=== PATIENT | male | born 1935 | race Caucasian/White ===

== ENCOUNTER 2022-03-23 19:25 | Emergency (ER) | payer MEDICARE, OTHER ==
[~2022-03-23] VITALS: Ht 177 cm; Wt 175.0 kg
[2022-03-23 19:56] LABS: BASOPHILS % (AUTO) 0 % (0-10); EOSINOPHILS % (AUTO) 0 % (0-10); HEMATOCRIT 40 % (40-54); HEMOGLOBIN 12.9 g/dL (13.3-17.7); LYMPHOCYTES # (AUTO) 0.5 10^3/uL (1.0-4.0); LYMPHOCYTES % (AUTO) 5 % (12-44); MEAN CORPUSCULAR HEMOGLOBIN 30 pg (25-34); MEAN CORPUSCULAR HGB CONC 32 g/dL (32-36); MEAN CORPUSCULAR VOLUME 93 fL (80-99); MONOCYTES # (AUTO) 0.7 10^3/uL (0.0-1.0); MONOCYTES % (AUTO) 7 % (0-12); NEUTROPHILS # (AUTO) 8.9 10^3/uL (1.8-7.8); NEUTROPHILS % (AUTO) 87 % (42-75); PLATELET COUNT 222 10^3/uL (130-400); WHITE BLOOD COUNT 10.3 10^3/uL (4.3-11.0)
--- NOTE | 2022-03-23 20:00 | Diagnostic Imaging Report ---
INDICATION: Shortness of air COMPARISON: None available TECHNIQUE: Single radiograph of the chest dated 03/23/2022. FINDINGS: The cardiac silhouette is enlarged. Central pulmonary vascular congestion is present. Diffuse interstitial opacities are noted with associated tiny bilateral pleural effusions. No pneumothorax. Chronic appearing left-sided rib fractures. Calcifications within the aortic arch. Scattered osseous degenerative changes without acute osseous abnormality. IMPRESSION: Mild bilateral interstitial opacities with associated trace pleural effusions. This is favored to relate to interstitial edema given cardiomegaly and mild central pulmonary vascular congestion. Interstitial infiltrate could be considered. Chronic left-sided rib fractures. Dictated by: Dictated on workstation # [id number]
[2022-03-23] MEDS ORDERED: RT-ALBUTEROL HFA 8.5 GM INHALER IH ONE (20:15)
--- NOTE | 2022-03-23 20:35 | ED General ---
General Chief Complaint: Trauma-Non Activation Stated Complaint: FALL Nursing Triage Note: Pt fell and hit the back of his head and his right side at the [facility]., "[facility]". He is complaining of a bump on the back of his head and shortness of air. Pt has abdominal retractions and increased work of breathing. Not on O2 at home but EMS has him on 4L of O2 via [place] on arrival for low O2 sats at the time they picked him up. He is diminished throughout with wheezing on the right. Source of Information: Patient, EMS, Family, [facility] Records Exam Limitations: No Limitations History of Present Illness Date Seen by Provider: Mar 23, 2022 Time Seen by Provider: 19:41 Initial Comments This 86-year-old gentleman presents to the emergency room via EMS after having a fall on same level at [facility] where he is a resident. He is a poor historian. He reports some minor pain at the right anterior costal margin. He denies any head or neck pain but he does have a hematoma on the right posterior scalp. No open wounds. He denies any hip pain. He is short of breath and exhibits accessory muscle use during expiration. Oxygen saturation was 90% on room air and he reports no history of oxygen use at home. His [facility] record notes past medical history significant for CHF, aortic stenosis, chronic kidney disease, hypertension, type 2 diabetes, and ischemic cardiomyopathy. He is afebrile. Primary care provider is Dr. WILEY. He was previously cared for by Maile Leroy at [facility] in [place] before moving into the [facility]. DNR order is noted. He has notable pitting edema of the lower extremities. Patient's son and [id number] arrive later and add to the history. Appar ently, patient has been complaining of shortness of breath since last week. He was found in his chair after the fall this evening. He reportedly got himself up to the chair on his own. Patient reports he got tripped up on his socks, and that was the cause of fall. Location Injury Occurred: [facility] Allergies and Home Medications Allergies Coded Allergies: hydroxyzine (Verified Allergy, Unknown, 03/23/22) lisinopril (Verified Allergy, Unknown, 03/23/22) Patient Home Medication List Home Medication List Reviewed: Yes Review of Systems Review of Systems Constitutional: no symptoms reported EENTM: see HPI Respiratory: see HPI Cardiovascular: see HPI Gastrointestinal: no symptoms reported Genitourinary: no symptoms reported Musculoskeletal: see HPI Skin: no symptoms reported Psychiatric/Neurological: See HPI, Other (Dementia) Hematologic/Lymphatic: No Symptoms Reported Immunological/Allergic: no symptoms reported Past Iweewmu-Pjqstj-Hldbgo Hx Patient Social History Tobacco Use?: No Smoking Status: Former Smoker Use of E-Cig and/or Vaping dev: No Substance use?: No Alcohol Use?: No Pt feels they are or have been: No Past Medical History Surgeries: Yes Orthopedic (Hip fracture) Respiratory: No Cardiac: Yes (Congestive heart failure) Cardiomyopathy (Ischemic), Hypertension Neurological: Yes Dementia Genitourinary: No Gastrointestinal: Yes Gastroesophageal Reflux, Esophagitis Musculoskeletal: No Endocrine: Yes Diabetes, Non-Insulin dep HEENT: No Cancer: No Psychosocial: No Integumentary: No Physical Exam Vital Signs Vital Signs - First Documented Capillary Refill : Less Than 3 Seconds Height, Weight, BMI Height: '" Weight: lbs. oz. kg; 55.00 BMI Method: General Appearance: No Apparent Distress, WD/WN HEENT: PERRL/EOMI, Normal ENT Inspection, Pharynx Normal Neck: Normal Inspection, Non Tender Respiratory: Accessory Muscle Use (Abdominal muscle use to force expiration); No Crackles; Decreased Breath Sounds (Diminished breath sounds bilaterally, worse on the right), Wheezing (Tight wheezing on the right), Other (Tenderness along the right lateral and anterior lower chest wall) Cardiovascular: No Murmur, Irregularly Irregular, Other (Significant pitting edema of the lower extremities, equal bilaterally) Gastrointestinal: Normal Bowel Sounds, Non Tender, Soft Back: Normal Inspection, No Vertebral Tenderness Extremity: Non Tender, Pedal Edema, Swelling, Other (No tenderness of the hips with palpation or pain with rotation of the hips) Neurologic/Psychiatric: Alert, No Motor/Sensory Deficits, Normal Mood/Affect, pulley worker II-XII Norm as Tested, Other (Oriented to person, age, and location) Skin: Normal Color, Warm/Dry Progress/Results/Core Measures Suspected Sepsis Recent Fever Within 48 Hours: No New/Unexplained Altered Menta: No SIRS Temperature: Pulse: 98 Respiratory Rate: 24 Laboratory Tests 03/23/22 19:30: White Blood Count 10.3 Blood Pressure 124 /84 Mean: 97 Laboratory Tests 03/23/22 19:30: Creatinine 1.61H, Platelet Count 222, Total Bilirubin 0.6 Results/Orders Lab Results Laboratory Tests Test 03/23/22 19:30 03/23/22 20:40 Range/Units White Blood Count 10.3 4.3-11.0 10^3/uL Red Blood Count 4.27 L 4.30-5.52 10^6/uL Hemoglobin 12.9 L 13.3-17.7 g/dL Hematocrit 40 40-54 % Mean Corpuscular Volume 93 80-99 fL Mean Corpuscular Hemoglobin 30 25-34 pg Mean Corpuscular Hemoglobin Concent 32 32-36 g/dL Red Cell Distribution Width 14.7 H 10.0-14.5 % Platelet Count 222 130-400 10^3/uL Mean Platelet Volume 10.0 9.0-12.2 fL Immature Granulocyte % (Auto) 1 % Neutrophils (%) (Auto) 87 H 42-75 % Lymphocytes (%) (Auto) 5 L 12-44 % Monocytes (%) (Auto) 7 0-12 % Eosinophils (%) (Auto) 0 0-10 % Basophils (%) (Auto) 0 0-10 % Neutrophils # (Auto) 8.9 H 1.8-7.8 10^3/uL Lymphocytes # (Auto) 0.5 L 1.0-4.0 10^3/uL Monocytes # (Auto) 0.7 0.0-1.0 10^3/uL Eosinophils # (Auto) 0.0 0.0-0.3 10^3/uL Basophils # (Auto) 0.0 0.0-0.1 10^3/uL Immature Granulocyte # (Auto) 0.1 0.0-0.1 10^3/uL Neutrophils % (Manual) 90 % Lymphocytes % (Manual) 2 % Monocytes % (Manual) 5 % Basophils % (Manual) 1 % Reactive Lymphocytes 2 % Platelet Estimate NORMAL Blood Morphology Comment NORMAL Sodium Level 141 135-145 MMOL/L Potassium Level 3.7 3.6-5.0 MMOL/L Chloride Level 105 98-107 MMOL/L Carbon Dioxide Level 24 21-32 MMOL/L Anion Gap 12 5-14 MMOL/L Blood Urea Nitrogen 22 H 7-18 MG/DL Creatinine 1.61 H 0.60-1.30 MG/DL Estimat Glomerular Filtration Rate 41 BUN/Creatinine Ratio 14 Glucose Level 154 H 70-105 MG/DL Calcium Level 9.9 8.5-10.1 MG/DL Corrected Calcium 9.9 8.5-10.1 MG/DL Magnesium Level 2.0 1.6-2.4 MG/DL Total Bilirubin 0.6 0.1-1.0 MG/DL Aspartate Amino Transf (AST/SGOT) 16 5-34 U/L Alanine Aminotransferase (ALT/SGPT) 17 0-55 U/L Alkaline Phosphatase 138 H 40-136 U/L Troponin I < 0.30 <0.30 NG/ML C-Reactive Protein 2.95 H <0.50 MG/DL Pro-B-Type Natriuretic Peptide 8447.0 H <75.0 PG/ML Total Protein 7.2 6.4-8.2 GM/DL Albumin 4.0 3.2-4.5 GM/DL Influenza Type A (RT-PCR) Not Detected Not Detecte Influenza Type B (RT-PCR) Not Detected Not Detecte SARS-CoV-2 RNA (RT-PCR) Not Detected Not Detecte Urine Color DARK YELLOW Urine Clarity CLEAR Urine pH 5.0 5-9 Urine Specific [place] 1.025 H 1.016-1.022 Urine Protein TRACE H NEGATIVE Urine Glucose (UA) NEGATIVE NEGATIVE Urine Ketones 1+ H NEGATIVE Urine Nitrite NEGATIVE NEGATIVE Urine Bilirubin NEGATIVE NEGATIVE Urine Urobilinogen 0.2 < = 1.0 MG/DL Urine Leukocyte Esterase NEGATIVE NEGATIVE Urine RBC (Auto) NEGATIVE NEGATIVE Urine RBC NONE /HPF Urine WBC RARE /HPF Urine Squamous Epithelial Cells RARE /HPF Urine Crystals NONE /LPF Urine Bacteria NEGATIVE /HPF Urine Casts NONE /LPF Urine Mucus MODERATE H /LPF Urine Culture Indicated NO My Orders Orders - JUAN MANUEL HUFFMAN MD Cbc With Automated Diff (03/23/22 19:40) Comprehensive Metabolic Panel (03/23/22 19:40) Magnesium (03/23/22 19:40) Probnp Fs (03/23/22 19:40) Crp Fs (03/23/22 19:40) Chest 1 View Ap/Pa Only (03/23/22 19:40) Ed Iv/Invasive Line Start (03/23/22 19:40) Ekg Tracing (03/23/22 19:40) O2 (03/23/22 19:40) Monitor-Rhythm Ecg Trace Only (03/23/22 19:40) Covid 19 Inhouse Test (03/23/22 19:40) Influenza A And B By Pcr (03/23/22 19:40) Ct Head/Cervical Spine Wo (03/23/22 19:43) Ct Chest/Abdomen/Pelvis Wo (03/23/22 19:43) Troponin I Abdon (03/23/22 19:55) Ua Culture If Indicated (03/23/22 19:55) Manual Differential (03/23/22 19:30) Albuterol Inhaler (Albuterol) (03/23/22 20:15) Sanchez Cath (03/23/22 20:55) Furosemide Injection (Lasix Injection) (03/23/22 21:15) Medications Given in ED Current Medications Medications Dose Ordered Sig/Rosa Route Start Time Stop Time Status Last Admin Dose Admin Albuterol Sulfate 4 PUFFS Q2H ONCE IH 03/23/22 20:15 03/23/22 20:16 DC 03/23/22 20:18 360 MCG Furosemide 40 mg ONCE ONCE IVP 03/23/22 21:15 03/23/22 21:16 DC 03/23/22 21:15 40 MG Vital Signs/I&O 03/23/22 03/23/22 03/23/22 03/23/22 19:25 19:25 19:25 19:25 Temp 36.8 36.8 36.8 Pulse 98 98 98 Resp 24 24 24 B/P (MAP) 124/84 (97) 124/84 124/84 (97) Pulse Ox 94 94 94 94 O2 Delivery Nasal Cannula Nasal Cannula Nasal Cannula Nasal Cannula O2 Flow Rate 4.00 4.00 4.00 03/23/22 03/23/22 21:47 22:06 Temp 36.7 Pulse 113 91 Resp 26 20 B/P (MAP) 141/67 127/84 Pulse Ox 97 96 O2 Delivery Nasal Cannula Nasal Cannula O2 Flow Rate 4.00 2.00 Capillary Refill : Less Than 3 Seconds Blood Pressure Mean: 97 Progress Note : Time: 21:30 Progress Note Patient underwent thorough evaluation with CT imaging from head through pelvis. No acute injuries were found in the head or cervical spine aside from the superficial scalp hematoma. However, there is question of rib fractures on the right where he is tender along the right anterior and lateral chest wall. Unfortunately there was motion artifact from breathing on the CT scan that makes definitive diagnosis of rib fracture uncertain. There is also question of T1 spinous process fracture and compression fractures at multiple levels with uncertain chronicity. Patient did not have any significant tenderness on the thoracic or lumbar spine. Heart failure seems to be his major problem at this time. He has notable pulmonary edema and pleural effusions bilaterally. He is requiring 2 to 4 L of oxygen and continues to have mild to moderate labored b reathing after albuterol treatment. Sanchez catheter was placed and Lasix 40 mg IV was administered. I discussed admission and transfer with patient and family. He has never been seen or admitted to [place] [facility] in [place]. His cardiac care has previously been provided at [facility], and that is where they prefer transfer. I discussed transfer with Dr. Beltran and the trauma service at [facility]. They graciously accept transfer to the [facility] location. Patient remains stable and alert at this time. Transfer to [facility] is preferred medically for continuity of cardiac care as well as availability of inhouse pulmonology and blueprint machine operator services which cannot be provided in [place]. The potential presence of pulmonary contusions and rib fracture increases risk in that regard. ECG Initial ECG Impression Date: Mar 23, 2022 Initial ECG Impression Time: 19:51 Initial ECG Rate: 97 Initial ECG Rhythm: Normal Sinus Comment Sinus rhythm with frequent premature beats. Right axis deviation and right bu ndle branch block. No ST elevation or depression to suggest ischemia. Diagnostic Imaging Diagonstic Imaging: Xray Plain Films/CT/US/NM/MRI: chest Comments Chest x-ray reviewed by me. Preliminary report reviewed. See report below: NAME: CHESTER CAUSEY REC#: [id number] PT STATUS: REG ER : 1935 PHYSICIAN: JUAN MANUEL HUFFMAN MD ADMIT DATE: 03/23/22/ER FS Draft Date of Exam:03/23/22 CHEST 1 VIEW AP/PA ONLY INDICATION: Shortness of air COMPARISON: None available TECHNIQUE: Single radiograph of the chest dated 03/23/2022. FINDINGS: The cardiac silhouette is enlarged. Central pulmonary vascular congestion is present. Diffuse interstitial opacities are noted with associated tiny bilateral pleural effusions. No pneumothorax. Chronic appearing left-sided rib fractures. Calcifications within the aortic arch. Scattered osseous degenerative changes without acute osseous abnormality. IMPRESSION: Mild bilateral interstitial opacities with associated trace pleural effusions. This is favored to relate to interstitial edema given cardiomegaly and mild central pulmonary vascular congestion. Interstitial infiltrate could be considered. Chronic left-sided rib fractures. Dictated on workstation # [id number] Dict: 03/23/221953 Trans: 03/23/221999 [facility] [id number] Interpreted by: ISAIAH FELIZ MD Diagonstic Imaging: CT Plain Films/CT/US/NM/MRI: chest, abdomen, pelvis Comments CT chest, abdomen and pelvis viewed by me and preliminary report reviewed. See report below: NAME: CHESTER CAUSEY REC#: [id number] PT STATUS: REG ER : 1935 PHYSICIAN: JUAN MANUEL HUFFMAN MD ADMIT DATE: 03/23/22/ER FS Signed Date of Exam:03/23/22 CT CHEST/ABDOMEN/PELVIS WO PROCEDURE: CT chest, abdomen, and pelvis without contrast. TECHNIQUE: Multiple contiguous axial images were obtained through the chest, abdomen, and pelvis without the use of intravenous contrast. Auto Exposure Controls were utilized during the CT exam to meet ALARA standards for radiation dose reduction. INDICATION: Fall, injury, pain COMPARISON: None available FINDINGS: No significant adenopathy within the chest. The heart is enlarged. Moderate scattered vascular calcifications, including within the coronary arteries. No pericardial effusion. Moderate sized bilateral pleural effusions with significant patchy groundglass and reticular opacities throughout the lungs bilaterally. No pneumothorax. Evaluation of the osseous structures within the chest is limited secondary to respiratory motion. There are potentially multiple lateral inferior right-sided rib fractures. Chronic appearing multiple posterior lateral left-sided rib fractures. Fracturing involving the tips of the T1 and T2 spinous processes. Mild superior endplate compression deformity of T2. Mild to moderate compression deformity of T9 is also identified with associated sclerosis. Moderate superior endplate deformity of T11 also noted with disruption of the superior endplate. The unenhanced liver and spleen are grossly unremarkable. The adrenal glands are unremarkable. The pancreas is grossly unremarkable. The gallbladder is unremarkable. 5 mm hyperdensity arising from the superior pole of the right kidney. 2.2 cm hypodensity within the left kidney with additional 0.8 cm hyperdensity within the inferior pole of the left kidney. No evidence of hydronephrosis. Moderate vascular calcifications within the abdominal aorta and its branch vessels without aneurysm. The appendix is unremarkable. The prostate gland is enlarged. Trabeculation of the urinary bladder with mild mural thickening of the urinary bladder. Bilateral fat-containing inguinal hernias. No bowel obstruction or pneumatosis. No significant adenopathy, free air, or free fluid within the abdomen or pelvis. Alignment of the lumbar spine is well maintained. Schmorl's node within the inferior endplate of L1. Significant degenerative changes within the lumbar spine without acute osseous abnormality within the lumbar spine. Postsurgical changes noted within the left femur and hip with associated heterotopic ossification. IMPRESSION: Multiple age-indeterminate compression deformities throughout the thoracolumbar spine, including T1, T2, T9, and T11. These are of uncertain chronicity, the majority of these appear potentially chronic in nature. Recommend correlation for pain at these locations. The T11 deformity could be recent given discontinuity of the superior endplate. Moderate bilateral pleural effusions with adjacent bilateral groundglass opacities which could relate to edema or contusion. No pneumothorax. Cardiomegaly. Potential lateral right-sided rib fractures, though this is favored to simply relate to respiratory motion. Bilateral renal hypo and hyperdensities, incompletely evaluated on this examination. These most likely statistically relate to cysts, including proteinaceous cysts. 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 Dictated by: Dictated on workstation # [id number] Dict: 03/23/222046 Trans: 03/23/222122 [facility] [id number] Interpreted by: ISAIAH FELIZ MD Electronically signed by: ISAIAH FELIZ MD 03/23/222122 Diagonstic Imaging: CT Plain Films/CT/US/NM/MRI: c-spine, head Comments CT head and C-spine viewed by me and preliminary report reviewed. See report below: NAME: CHESTER CAUSEY REC#: [id number] PT STATUS: REG ER : 1935 PHYSICIAN: JUAN MANUEL HUFFMAN MD ADMIT DATE: 03/23/22/ER FS Signed Date of Exam:03/23/22 CT HEAD/CERVICAL SPINE WO PROCEDURE: CT head and CT cervical spine without contrast. TECHNIQUE: Multiple contiguous axial images were obtained through the brain and cervical spine without the use of intravenous contrast. Sagittal and coronal reformations through the cervical spine were then performed. Auto Exposure Controls were utilized during the CT exam to meet ALARA standards for radiation dose reduction. INDICATION: Fall, head injury, pain COMPARISON: None available FINDINGS: Advanced atrophy. No intracranial hemorrhage. No intracranial mass, mass effect, midline shift, herniation, hydrocephalus, or extra-axial fluid collection. Periventricular and subcortical white matter hypodensities are present, most consistent with moderate background chronic small vessel white matter ischemic disease. No definite CT evidence of an acute ischemic infarction. Posterior right parietal scalp hematoma is present without underlying calvarial fracture. The bilateral ocular lenses are absent. The orbits are otherwise unremarkable. Background vascular calcifications. The paranasal sinuses are clear. The calvarium is intact. Reversal of the normal cervical lordosis without significant anterolisthesis or retrolisthesis. Alignment of the atlantooccipital joint is well maintained. Mild superior endplate concavity of T2 is identified, though only partially visualized. Chronic appearing vertebral body height loss of C7. Fracturing of the distal aspect of the T1 spinous process. No additional acute fracture. Multilevel high-grade disc space height loss, particularly at C4/C5 through C6/C7. Multilevel disc bulges and disc osteophyte complexes are present. Scattered facet joint degenerative changes and uncovertebral joint hypertrophy. There is resulting multilevel neural foraminal stenosis, including severe right neural foraminal stenosis at C3/C4. Moderate to severe bilateral neural foraminal stenosis at C5/C6. Multilevel central canal stenosis is present, greatest at C4/C5 and C5/C6. Bilateral pleural effusions are partially visualized. Background vascular calcifications. IMPRESSION: No acute intracranial abnormality with a posterior right parietal scalp hematoma without underlying calvarial fracture. Age-indeterminate mild superior endplate compression deformity of T2. Recommend correlation for focal pain at this location. Mildly displaced fracture involving the tip of the T1 spinous process, likely acute. Advanced multilevel degenerative changes with multilevel central canal and neural foraminal stenosis. Bilateral pleural effusions. Dictated by: Dictated on workstation # [id number] Dict: 03/23/222040 Trans: 03/23/222123 [facility] [id number] Interpreted by: ISAIAH FELIZ MD Electronically signed by: ISAIAH FELIZ MD 03/23/222123 Departure Impression Primary Impression: Acute exacerbation of congestive heart failure Qualified Codes: I50.9 - Heart failure, unspecified Additional Impressions: Fall on same level as cause of accidental injury Right rib fracture Scalp contusion Qualified Codes: S00.03XA - Contusion of scalp, initial encounter Hypoxia Pleural effusion Possible pulmonary contusion Spinous process fracture Disposition: XFER SHT-TRM HOSP Condition: Stable Transfer Transfer Reason: Exceeds level of care Time Spoke to Accepting Phy: 21:04 Transfer Progress Notes Transfer accepted by Dr. Beltran to [facility]. Transfer Time: 22:06 Transfer Facility: [facility] Method of Transfer: EMS Copy Copies To 1: [facility] Copies To 2: ANITA WILEY JOSHUA T MD Mar 23, 2022 20:35
[2022-03-23 20:42] LABS: BASOPHILS % (MANUAL) 1 %; LYMPHOCYTES % (MANUAL) 2 %; MONOCYTES % (MANUAL) 5 %; NEUTROPHILS % (MANUAL) 90 %
[2022-03-23 20:43] LABS: PLATELET ESTIMATE NORMAL; RBC MORPH NORMAL; REACTIVE LYMPHOCYTES 2 %
[2022-03-23 20:45] LABS: BILIRUBIN,TOTAL 0.6 MG/DL (0.1-1.0); CALCIUM 9.9 MG/DL (8.5-10.1); CREATININE SERUM 1.61 MG/DL (0.60-1.30); POTASSIUM 3.7 MMOL/L (3.6-5.0)
[2022-03-23 20:46] LABS: TOTAL PROTEIN 7.2 GM/DL (6.4-8.2)
--- NOTE | 2022-03-23 20:56 | Diagnostic Imaging Report ---
PROCEDURE: CT head and CT cervical spine without contrast. TECHNIQUE: Multiple contiguous axial images were obtained through the brain and cervical spine without the use of intravenous contrast. Sagittal and coronal reformations through the cervical spine were then performed. Auto Exposure Controls were utilized during the CT exam to meet ALARA standards for radiation dose reduction. INDICATION: Fall, head injury, pain COMPARISON: None available FINDINGS: Advanced atrophy. No intracranial hemorrhage. No intracranial mass, mass effect, midline shift, herniation, hydrocephalus, or extra-axial fluid collection. Periventricular and subcortical white matter hypodensities are present, most consistent with moderate background chronic small vessel white matter ischemic disease. No definite CT evidence of an acute ischemic infarction. Posterior right parietal scalp hematoma is present without underlying calvarial fracture. The bilateral ocular lenses are absent. The orbits are otherwise unremarkable. Background vascular calcifications. The paranasal sinuses are clear. The calvarium is intact. Reversal of the normal cervical lordosis without significant anterolisthesis or retrolisthesis. Alignment of the atlantooccipital joint is well maintained. Mild superior endplate concavity of T2 is identified, though only partially visualized. Chronic appearing vertebral body height loss of C7. Fracturing of the distal aspect of the T1 spinous process. No additional acute fracture. Multilevel high-grade disc space height loss, particularly at C4/C5 through C6/C7. Multilevel disc bulges and disc osteophyte complexes are present. Scattered facet joint degenerative changes and uncovertebral joint hypertrophy. There is resulting multilevel neural foraminal stenosis, including severe right neural foraminal stenosis at C3/C4. Moderate to severe bilateral neural foraminal stenosis at C5/C6. Multilevel central canal stenosis is present, greatest at C4/C5 and C5/C6. Bilateral pleural effusions are partially visualized. Background vascular calcifications. IMPRESSION: No acute intracranial abnormality with a posterior right parietal scalp hematoma without underlying calvarial fracture. Age-indeterminate mild superior endplate compression deformity of T2. Recommend correlation for focal pain at this location. Mildly displaced fracture involving the tip of the T1 spinous process, likely acute. Advanced multilevel degenerative changes with multilevel central canal and neural foraminal stenosis. Bilateral pleural effusions. Dictated by: Dictated on workstation # [id number]
--- NOTE | 2022-03-23 21:01 | Diagnostic Imaging Report ---
PROCEDURE: CT chest, abdomen, and pelvis without contrast. TECHNIQUE: Multiple contiguous axial images were obtained through the chest, abdomen, and pelvis without the use of intravenous contrast. Auto Exposure Controls were utilized during the CT exam to meet ALARA standards for radiation dose reduction. INDICATION: Fall, injury, pain COMPARISON: None available FINDINGS: No significant adenopathy within the chest. The heart is enlarged. Moderate scattered vascular calcifications, including within the coronary arteries. No pericardial effusion. Moderate sized bilateral pleural effusions with significant patchy groundglass and reticular opacities throughout the lungs bilaterally. No pneumothorax. Evaluation of the osseous structures within the chest is limited secondary to respiratory motion. There are potentially multiple lateral inferior right-sided rib fractures. Chronic appearing multiple posterior lateral left-sided rib fractures. Fracturing involving the tips of the T1 and T2 spinous processes. Mild superior endplate compression deformity of T2. Mild to moderate compression deformity of T9 is also identified with associated sclerosis. Moderate superior endplate deformity of T11 also noted with disruption of the superior endplate. The unenhanced liver and spleen are grossly unremarkable. The adrenal glands are unremarkable. The pancreas is grossly unremarkable. The gallbladder is unremarkable. 5 mm hyperdensity arising from the superior pole of the right kidney. 2.2 cm hypodensity within the left kidney with additional 0.8 cm hyperdensity within the inferior pole of the left kidney. No evidence of hydronephrosis. Moderate vascular calcifications within the abdominal aorta and its branch vessels without aneurysm. The appendix is unremarkable. The prostate gland is enlarged. Trabeculation of the urinary bladder with mild mural thickening of the urinary bladder. Bilateral fat-containing inguinal hernias. No bowel obstruction or pneumatosis. No significant adenopathy, free air, or free fluid within the abdomen or pelvis. Alignment of the lumbar spine is well maintained. Schmorl's node within the inferior endplate of L1. Significant degenerative changes within the lumbar spine without acute osseous abnormality within the lumbar spine. Postsurgical changes noted within the left femur and hip with associated heterotopic ossification. IMPRESSION: Multiple age-indeterminate compression deformities throughout the thoracolumbar spine, including T1, T2, T9, and T11. These are of uncertain chronicity, the majority of these appear potentially chronic in nature. Recommend correlation for pain at these locations. The T11 deformity could be recent given discontinuity of the superior endplate. Moderate bilateral pleural effusions with adjacent bilateral groundglass opacities which could relate to edema or contusion. No pneumothorax. Cardiomegaly. Potential lateral right-sided rib fractures, though this is favored to simply relate to respiratory motion. Bilateral renal hypo and hyperdensities, incompletely evaluated on this examination. These most likely statistically relate to cysts, including proteinaceous cysts. 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 Dictated by: Dictated on workstation # [id number]
[2022-03-23 21:04] LABS: BILIRUBIN,URINE NEGATIVE (NEGATIVE); CLARITY,URINE CLEAR; GLUCOSE, URINE (UA) NEGATIVE (NEGATIVE); KETONES,URINE 1+ (NEGATIVE); LEUKOCYTE ESTERASE ,URINE NEGATIVE (NEGATIVE); NITRITE,URINE NEGATIVE (NEGATIVE); PROTEIN,URINE TRACE (NEGATIVE)
[2022-03-23 21:13] LABS: COLOR,URINE DARK YELLOW; WBC,URINE RARE /HPF
[2022-03-23 21:14] LABS: BACTERIA,URINE NEGATIVE /HPF; SQUAMOUS EPITHELIAL CELL,UR RARE /HPF
[2022-03-23] MEDS ORDERED: FUROSEMIDE 40 MG/4 ML INJ (LASIX) IVP ONE (21:15)
[2022-03-23 22:06] VITALS: BP 127/84
== END 2022-03-23 22:06 | disposition short-term general hospital (02) ==
LOC: ER FS 19:41
DX: S22.31XA Fracture of one rib, right side, initial encounter for closed fracture (principal); S22.019A Unspecified fracture of first thoracic vertebra, initial encounter for closed fracture; S00.03XA Contusion of scalp, initial encounter; I50.9 Heart failure, unspecified; I11.0 Hypertensive heart disease with heart failure; J90 Pleural effusion, not elsewhere classified; R09.02 Hypoxemia; Z87.891 Personal history of nicotine dependence; W18.30XA Fall on same level, unspecified, initial encounter
CPT/HCPCS: 36415; 51702; 70450; 71045; 71250; 72125; 74176; 80053; 81000; 83735; 83880; 84484; 85007; 85027; 86141; 87636; 93005; 93041